=== PATIENT | male | born 1985 | race Caucasian/White ===

== ENCOUNTER 2017-04-20 14:21 | Emergency (ER) | payer OTHER ==
[~2017-04-20] VITALS: Ht 190.5 cm; Wt 104.3 kg
--- NOTE | 2017-04-20 14:28 | NUR ---
A/OX4, CAME TO ER W/ C/O RT SIDED CHEST PAIN W/ SOB X 11 AM, H/O COLLAPSED LUNGS 10/07. PT STS HE HAD SIMILAR SYMPTOMS. VSS NAD RR EVEN AND UNLABORED. SKIN IS WARM AND NON DIAPHORETIC. SPEAKS IN FULL SENTENCE. ER MD NOTIFIED.
--- NOTE | 2017-04-20 16:47 | NUR ---
REPORT GIVEN TO RAMANA RAMOS RN
--- NOTE | 2017-04-20 17:23 | NUR ---
[employer] ANALYST AT BEDSIDE
[2017-04-20] MEDS ORDERED: LIDOCAINE 1%-EPI 1:100,000 50 ML VIAL IJ ONE (17:41)
--- NOTE | 2017-04-20 19:06 | NUR ---
GIVEN REPORT TO SAR FOR MICHAEL
[2017-04-20 19:24] VITALS: BP 135/72
--- NOTE | 2017-04-20 19:31 | NUR ---
Patient discharged to home in stable condition. Written and verbal after care instructions given. Patient verbalizes understanding of instruction.
== END 2017-04-20 19:31 | disposition home or self-care (01) ==
LOC: ER 14:25
DX: J93.83 Other pneumothorax (principal); J98.19 Other pulmonary collapse; Z88.5 Allergy status to narcotic agent
CPT/HCPCS: 32551; 71010 ×4; 93005; 99285; A4606; J3490; Z7610